=== PATIENT | male | born 1965 | race African-American/Black ===

== ENCOUNTER 2021-01-04 08:37 | Emergency (ER) | payer MEDICARE, OTHER ==
[~2021-01-04] VITALS: Ht 182.9 cm; Wt 113.6 kg
[~2021-01-04 08:37] MED LIST: ACET325T9 PO; AMIO200T6 PO; ASPI-630 PO; ATOR40TA59 PO; CALC200T3 PO; CARV25TA PO; CHOL400C PO; DIVA250T PO; DIVA500T4 PO; ESTR-113 PO; ESTR2TAB PO; FAMO20TA5 PO; FERR325T14 PO; FURO40TA4 PO; HYDR25TA PO; IMIP75CA PO; LISI20TA18 PO; OLAN10TA9 PO; OLAN20TA15 PO; PANT20TA2 PO; PARO40TA3 PO; PARO40TA61 PO; POLY17PO29 PO; SPIR25TA5 PO; SPIR50TA4 PO; ZINC50TA39 PO
--- NOTE | 2021-01-04 09:09 | RAD ---
EXAM: CHEST 1 VIEW History: Fall COMPARISON: None available. TECHNIQUE: Single portable radiograph of the chest FINDINGS: The cardiac silhouette is unremarkable. The lungs are clear bilaterally. The costophrenic sulci are clear and well demarcated. IMPRESSION: No radiographic evidence of an acute cardiopulmonary process. Electronically signed by: Ted Crawford MD (01/04/2021 9:07 AM) [id number]
--- NOTE | 2021-01-04 09:18 | RAD ---
PQRS Compliance Statement: One or more of the following individualized dose reduction techniques were utilized for this examinat ion: 1. Automated exposure control 2. Adjustment of the mA and/or kV according to patient size 3. Use of iterative reconstruction technique CT head without contrast 01/04/2021 8:55 AM INDICATION: Fall today, hit head. Loss of consciousness. COMPARISON: CT head 08/03/2020 TECHNIQUE: Multiple axial CT images of the head were obtained from skull base through the vertex with out intravenous contrast. FINDINGS: Head: Ventricles, sulci and basal cisterns are prominent compatible with mild generalized cerebral volume l oss. Remote lacunar infarct identified within the right caudate head. There is a moderate territory r emote infarct involving the left frontoparietal lobe, stable. Remote infarct is identified involving the left frontal operculum. There is a remote infarct involving the right medial occipital lobe. Low- attenuation in the periventricular white matter is suggestive of chronic small vessel ischemic change s. Findings are not significantly changed since prior examination. There is no hydrocephalus. There i s no acute intracranial hemorrhage. There is no mass, mass effect or midline shift. Small retrocerebe llar cyst is noted. Otherwise the posterior fossa is normal in appearance. Visualized portions of the orbits are normal. Paranasal sinuses are well aerated. Mastoid air cells a re well aerated. Scalp and calvaria are normal. IMPRESSION: 1. No evidence for acute intracranial hemorrhage. 2. Mild generalized cerebral line loss. Low-attenuation in the periventricular white matter is sugges tive of chronic small vessel ischemic changes. Findings are similar to prior examination. 3. Multifocal areas of encephalomalacia suggestive of remote infarcts in multiple vascular territorie s. Findings are similar to the prior summation from 08/03/2020. If there is concern for acute or subac belkofski ischemia, further characterization with MRI of the brain is recommended. Electronically signed by: Iris Baker MD (01/04/2021 9:15 AM) [id number]
[2021-01-04 09:23] LABS: BASO % 1 % (0-3); EOS # 0.2 x10^3/uL (0.0-0.7); EOS % 4 % (0-3); HEMATOCRIT 37.5 % (39.0-53.0); HEMOGLOBIN 12.3 g/dL (13.0-17.5); LYMPH # 1.2 x10^3/uL (1.0-4.8); LYMPH % 28 % (24-48); MEAN CORPUSCULAR HEMOGLOBIN 32 pg (25-35); MEAN CORPUSCULAR HGB CONC 33 g/dL (31-37); MEAN CORPUSCULAR VOLUME 96 fL (79-100); MONO # 0.5 x10^3/uL (0.0-1.1); MONO % 11 % (0-9); NEUT # 2.3 x10^3/uL (1.8-7.7); NEUT % 56 % (31-73); PLATELET COUNT 172 x10^3/uL (140-400); RED CELL DISTRIBUTION WIDTH 15.5 % (11.5-14.5); WHITE BLOOD COUNT 4.1 x10^3/uL (4.0-11.0)
[2021-01-04 09:35] LABS: CALCIUM 8.8 mg/dL (8.5-10.1); CREATININE 1.6 mg/dL (0.7-1.3); GFR 54.2; POTASSIUM 5.1 mmol/L (3.5-5.1)
[2021-01-04 09:41] LABS: ALBUMIN 3.3 g/dL (3.4-5.0); ALBUMIN/GLOBULIN RATIO 0.9 (1.0-1.7); MAGNESIUM 2.5 mg/dL (1.8-2.4); TOTAL BILIRUBIN 0.4 mg/dL (0.2-1.0); TOTAL PROTEIN 7.1 g/dL (6.4-8.2)
[2021-01-04 13:50] LABS: BARBITURATES NEG (NEG); BENZODIAZEPINES NEG (NEG); CANNABINOIDS NEG (NEG); COCAINE NEG (NEG); METHADONE NEG (NEG); OPIATES NEG (NEG); PHENCYCLIDINE NEG (NEG)
[2021-01-04 13:51] LABS: AMPHETAMINE/METHAMPHETAMINE NEG (NEG)
[2021-01-04 13:54] LABS: BILIRUBIN,URINE NEGATIVE (NEG); CLARITY,URINE CLEAR; COLOR,URINE YELLOW; NITRITE,URINE NEGATIVE (NEG); PH,URINE 6.5 (<5.0-8.0); PROTEIN,URINE NEGATIVE (NEG-TRACE)
--- NOTE | 2021-01-04 14:17 | PHYS DOC ---
Past Medical History Past Medical History: A-Fib, Anemia, CHF, GERD, GI Bleed, Hypertension, Liver Disease, Schizophrenia, Other Additional Past Medical Histor: Impulse d/o, jenaro risk heterosexual behavior, constipation, chronic gastric [facility] Past Surgical History: Other Additional Past Surgical Histo: Unknown, pt not a good historian, NECK ([facility]) Smoking Status: Former Smoker Alcohol Use: None Drug Use: None ([facility]) General Adult EDM: Chief Complaint: MECHANICAL FALL HPI: HPI: 55 yo M ([facility]) Review of Systems: Review of Systems: Constitutional: Denies fever or chills. [] Eyes: Denies change in visual acuity. [] HENT: Denies nasal congestion or sore throat. [] Respiratory: Denies cough or shortness of breath. [] Cardiovascular: Denies chest pain or edema. [] GI: Denies abdominal pain, nausea, vomiting, bloody stools or diarrhea. [] : Denies dysuria. [] Musculoskeletal: Denies back pain or joint pain. [] Integument: Denies rash. [] Neurologic: Denies headache, focal weakness or sensory changes. [] Endocrine: Denies polyuria or polydipsia. [] Lymphatic: Denies swollen glands. [] Psychiatric: Denies depression or anxiety. [] ([facility]) Heart Score: C/O Chest Pain: No Risk Factors: Risk Factors: DM, Current or recent (<one month) smoker, HTN, HLP, family history of CAD, obesity. Risk Scores: Score 0 - 3: 2.5% MACE over next 6 weeks - Discharge Home Score 4 - 6: 20.3% MACE over next 6 weeks - Admit for Clinical Observation Score 7 - 10: 72.7% MACE over next 6 weeks - Early Invasive Strategies ([facility]) Allergies: Allergies: Allergies Coded Allergies Type Severity Reaction Last Updated Verified lisinopril Allergy Severe ANGIOEDEMA 08/15/18 Yes ([facility]) Physical Exam: PE: Constitutional: Well developed, well nourished, no acute distress, non-toxic appearance. HENT: Normocephalic, atraumatic, Eyes: EOMI, conjunctiva normal, no discharge. Neck: Normal range of motion, supple, Cardiovascular: S1/2 present, regular rhythm Lungs & Thorax: Speaking in full sentences, bilateral equal chest rise, no tachypnea or increased work of breathing Abdomen: soft, no tenderness, Skin: Warm, dry, no erythema, no rash. [] Back: No tenderness, no CVA tenderness. [] Extremities: No tenderness, no cyanosis, no lower extremity edema Neurologic: Alert and oriented X 3, normal motor function, normal sensory function, no focal deficits noted. [] Psychologic: Affect normal, judgement normal, mood normal. [] ([facility],LIANNA Valles DO) Current Patient Data: Labs: Laboratory Tests Test 01/04/21 09:12 01/04/21 12:15 01/04/21 13:20 White Blood Count 4.1 x10^3/uL (4.0-11.0) Red Blood Count 3.90 x10^6/uL (4.30-5.70) L Hemoglobin 12.3 g/dL (13.0-17.5) L Hematocrit 37.5 % (39.0-53.0) L Mean Corpuscular Volume 96 fL (79-100) Mean Corpuscular Hemoglobin 32 pg (25-35) Mean Corpuscular Hemoglobin Concent 33 g/dL (31-37) Red Cell Distribution Width 15.5 % (11.5-14.5) H Platelet Count 172 x10^3/uL (140-400) Neutrophils (%) (Auto) 56 % (31-73) Lymphocytes (%) (Auto) 28 % (24-48) Monocytes (%) (Auto) 11 % (0-9) H Eosinophils (%) (Auto) 4 % (0-3) H Basophils (%) (Auto) 1 % (0-3) Neutrophils # (Auto) 2.3 x10^3/uL (1.8-7.7) Lymphocytes # (Auto) 1.2 x10^3/uL (1.0-4.8) Monocytes # (Auto) 0.5 x10^3/uL (0.0-1.1) Eosinophils # (Auto) 0.2 x10^3/uL (0.0-0.7) Basophils # (Auto) 0.0 x10^3/uL (0.0-0.2) Sodium Level 141 mmol/L (136-145) Potassium Level 5.1 mmol/L (3.5-5.1) Chloride Level 103 mmol/L (98-107) Carbon Dioxide Level 32 mmol/L (21-32) Anion Gap 6 (6-14) Blood Urea Nitrogen 22 mg/dL (8-26) Creatinine 1.6 mg/dL (0.7-1.3) H Estimated GFR (Cockcroft-Gault) 54.2 BUN/Creatinine Ratio 14 (6-20) Glucose Level 111 mg/dL (70-99) H Calcium Level 8.8 mg/dL (8.5-10.1) Magnesium Level 2.5 mg/dL (1.8-2.4) H Total Bilirubin 0.4 mg/dL (0.2-1.0) Aspartate Amino Transferase (AST) 19 U/L (15-37) Alanine Aminotransferase (ALT) 23 U/L (16-63) Alkaline Phosphatase 67 U/L (46-116) Troponin I Quantitative < 0.017 ng/mL (0.000-0.055) < 0.017 ng/mL (0.000-0.055) WQ-Abp-I-Type Natriuretic Peptide 119 pg/mL (0-124) Total Protein 7.1 g/dL (6.4-8.2) Albumin 3.3 g/dL (3.4-5.0) L Albumin/Globulin Ratio 0.9 (1.0-1.7) L Lipase 54 U/L (73-393) L Urine Opiates Screen Neg (NEG) Urine Methadone Screen Neg (NEG) Urine Barbiturates Neg (NEG) Urine Phencyclidine Screen Neg (NEG) Urine Amphetamine/Methamphetamine Neg (NEG) Urine Benzodiazepines Screen Neg (NEG) Urine Cocaine Screen Neg (NEG) Urine Cannabinoids Screen Neg (NEG) Urine Ethyl Alcohol Neg (NEG) Laboratory Tests 01/04/21 09:12 Laboratory Tests 01/04/21 09:12 Vital Signs: Vital Signs Date Time Temp Pulse Resp B/P (MAP) Pulse Ox O2 Delivery O2 Flow Rate FiO2 01/04/21 11:21 60 14 134/78 (96) 95 01/04/21 08:45 98.2 Room Air 98.2 ([facility]) Vital Signs: Vital Signs Date Time Temp Pulse Resp B/P (MAP) Pulse Ox O2 Delivery O2 Flow Rate FiO2 01/04/21 08:45 98.2 63 21 124/71 (88) 94 Room Air 98.2 Vital Signs Date Time Temp Pulse Resp B/P (MAP) Pulse Ox O2 Delivery O2 Flow Rate FiO2 01/04/21 18:58 72 127/85 (99) 93 Room Air 01/04/21 11:21 14 01/04/21 08:45 98.2 98.2 (MARGIE LOU DO) EKG: EKG: [] (LIANNA SAPP DO) EKG: EKG ordered and initially reviewed by daytime physician, further reviewed and interpreted by myself as sinus rhythm at 63 bpm, prolonged SC interval at 202 otherwise unremarkable intervals, left axis deviation, no obvious ischemic findings, no STEMI (MARGIE LOU DO) Radiology/Procedures: Radiology/Procedures: IMAGING REPORT Signed PATIENT: LUIS DANIEL MCCARTY ACCOUNT: [id number] : 1965 LOCATION: ER AGE: 55 SEX: M EXAM STATUS: REG ER ORD. PHYSICIAN: LIANNA SAPP DO REASON: FALL TODAY, HIT HEAD, PT STATED LOC PROCEDURE: CT HEAD WO CONTRAST PQRS Compliance Statement: One or more of the following individualized dose reduction techniques were utilized for this examination: 1. Automated exposure control 2. Adjustment of the mA and/or kV according to patient size 3. Use of iterative reconstruction technique CT head without contrast 01/04/2021 8:55 AM INDICATION: Fall today, hit head. Loss of consciousness. COMPARISON: CT head 08/03/2020 TECHNIQUE: Multiple axial CT images of the head were obtained from skull base through the vertex without intravenous contrast. FINDINGS: Head: Ventricles, sulci and basal cisterns are prominent compatible with mild generalized cerebral volume loss. Remote lacunar infarct identified within the right caudate head. There is a moderate territory remote infarct involving the left frontoparietal lobe, stable. Remote infarct is identified involving the left frontal operculum. There is a remote infarct involving the right medial occipital lobe. Low-attenuation in the periventricular white matter is s uggestive of chronic small vessel ischemic changes. Findings are not significantly changed since prior examination. There is no hydrocephalus. There is no acute intracranial hemorrhage. There is no mass, mass effect or midline shift. Small retrocerebellar cyst is noted. Otherwise the posterior fossa is normal in appearance. Visualized portions of the orbits are normal. Paranasal sinuses are well aerated. Mastoid air cells are well aerated. Scalp and calvaria are normal. IMPRESSION: 1. No evidence for acute intracranial hemorrhage. 2. Mild generalized cerebral line loss. Low-attenuation in the periventricular white matter is suggestive of chronic small vessel ischemic changes. Findings a re similar to prior examination. 3. Multifocal areas of encephalomalacia suggestive of remote infarcts in multiple vascular territories. Findings are similar to the prior summation from 08/03/2020. If there is concern for acute or subacute ischemia, further characterization with MRI of the brain is recommended. Electronically signed by: Rubén Batres MD (01/04/2021 9:15 AM) [id number] DICTATED and SIGNED BY: RUBÉN BATRES MD DATE: 01/04/21 [id number] 0 IMAGING REPORT Signed PATIENT: LUIS DANIEL MCCARTY ACCOUNT: [id number] : 1965 LOCATION: ER AGE: 55 SEX: M EXAM STATUS: PRE ER ORD. PHYSICIAN: LIANNA SAPP DO REASON: fall? PROCEDURE: PORTABLE CHEST 1V EXAM: CHEST 1 VIEW History: Fall COMPARISON: None available. TECHNIQUE: Single portable radiograph of the chest FINDINGS: The cardiac silhouette is unremarkable. The lungs are clear bilaterally. The costophrenic sulci are clear and well demarcated. IMPRESSION: No radiographic evidence of an acute cardiopulmonary process. Electronically signed by: Ted Crawford MD (01/04/2021 9:07 AM) [id number] DICTATED and SIGNED BY: TED CRAWFORD MD DATE: 01/04/21 [id number] 0 IMAGING REPORT Signed PATIENT: LUIS DANIEL MCCARTY ACCOUNT: [id number] : 1965 LOCATION: ER AGE: 55 SEX: M EXAM STATUS: REG ER ORD. PHYSICIAN: LIANNA SAPP DO REASON: FALL TODAY, HIT HEAD, PT STATED LOC PROCEDURE: CT HEAD WO CONTRAST PQRS Compliance Statement: One or more of the following individualized dose reduction techniques were utilized for this examination: 1. Automated exposure control 2. Adjustment of the mA and/or kV according to patient size 3. Use of iterative reconstruction technique CT head without contrast 01/04/2021 8:55 AM INDICATION: Fall today, hit head. Loss of consciousness. COMPARISON: CT head 08/03/2020 TECHNIQUE: Multiple axial CT images of the head were obtained from skull base through the vertex without intravenous contrast. FINDINGS: Head: Ventricles, sulci and basal cisterns are prominent compatible with mild generalized cerebral volume loss. Remote lacunar infarct identified within the right caudate head. There is a moderate territory remote infarct involving the left frontoparietal lobe, stable. Remote infarct is identified involving the left frontal operculum. There is a remote infarct involving the right medial occipital lobe. Low-attenuation in the periventricular white matter is suggestive of chronic small vessel ischemic changes. Findings are not sign ificantly changed since prior examination. There is no hydrocephalus. There is no acute intracranial hemorrhage. There is no mass, mass effect or midline shift. Small retrocerebellar cyst is noted. Otherwise the posterior fossa is normal in appearance. Visualized portions of the orbits are normal. Paranasal sinuses are well aerated. Mastoid air cells are well aerated. Scalp and calvaria are normal. IMPRESSION: 1. No evidence for acute intracranial hemorrhage. 2. Mild generalized cerebral line loss. Low-attenuation in the periventricular white matter is suggestive of chronic small vessel ischemic changes. Findings are similar to prior examination. 3. Multifocal areas of encephalomalacia suggestive of remote infarcts in multiple vascular territories. Findings are similar to the prior summation from 08/03/2020. If there is concern for acute or subacute ischemia, further characterization with MRI of the brain is recommended. Electronically signed by: Rubén Batres MD (01/04/2021 9:15 AM) [id number] DICTATED and SIGNED BY: RUBÉN BATRES MD DATE: 01/04/21 [id number] 0 IMAGING REPORT Signed PATIENT: LUIS DANIEL MCCARTY ACCOUNT: [id number] : 1965 LOCATION: ER AGE: 55 SEX: M EXAM STATUS: PRE ER ORD. PHYSICIAN: LIANNA SAPP DO REASON: fall? PROCEDURE: PORTABLE CHEST 1V EXAM: CHEST 1 VIEW History: Fall COMPARISON: None available. TECHNIQUE: Single portable radiograph of the chest FINDINGS: The cardiac silhouette is unremarkable. The lungs are clear bilaterally. The costophrenic sulci are clear and well demarcated. IMPRESSION: No radiographic evidence of an acute cardiopulmonary process. Electronically signed by: Ted Crawford MD (01/04/2021 9:07 AM) [id number] DICTATED and SIGNED BY: TED CRAWFORD MD DATE: 01/04/21 [id number] 0 IMAGING REPORT Signed PATIENT: LUIS DANIEL MCCARTY ACCOUNT: [id number] : 1965 LOCATION: ER AGE: 55 SEX: M EXAM STATUS: REG ER ORD. PHYSICIAN: LIANNA SAPP DO REASON: fall PROCEDURE: PELVIS EXAMINATION: Pelvic radiograph. VIEWS: Single AP view COMPARISON: None INDICATION: Falling down FINDINGS: No acute fracture, dislocation or subluxation. No bone erosion or periosteal reaction. No soft tissue swelling or joint effusion. IMPRESSION: No acute process process. Electronically signed by: Isidra Cheng MD (01/04/2021 2:39 PM) [id number] DICTATED and SIGNED BY: ISIDRA CHENG MD DATE: 01/04/21 [id number] 0 (LIANNA SAPP DO) Course & Med Decision Making: Course & Med Decision Making Pertinent Labs and Imaging studies reviewed. (See chart for details) [] (LIANNA SAPP DO) Course & Med Decision Making I assumed care of patient after comprehensive signout by off going physician. I personally saw patient and repeated aspects of history and physical exam. I reviewed entirety of ER work-up that was grossly nonconcerning for emergent or surgical findings, troponins x3 unremarkable I discussed potential need for hospital admission but patient deferred, states he is at baseline health, demonstrated he was able to ambulate without difficulty and was ready for discharge back to shelter facility which will provide him adequate care given his current condition I reiterated importance of close PCP follow-up, strict return precautions were discussed with good understanding by patient, all questions and concerns addressed prior to ER departure (MARGIE LOU DO) Dragon Disclaimer: Markel Disclaimer: This electronic medical record was generated, in whole or in part, using a voice recognition dictation system. (LIANNA SAPP DO) Departure Departure Impression: Primary Impression: Accident due to mechanical fall without injury Disposition: HOME / SELF CARE / HOMELESS Condition: STABLE Referrals: JUANCARLOS QUILES MD (PCP) Patient Instructions: Fall Prevention and Home Safety Additional Instructions: As discussed prior to ER departure, you were seen and evaluated for a mechanical fall. Your comprehensive physical exam and ER work-up consisting of blood and imaging was all negative for any emergent or surgical issues. With that said, it was stressed how important it is to follow-up with your primary care provider in the upcoming 48 hours after ER departure for repeat evaluation. If any concerning signs or symptoms present prior to outpatient follow-up please do not hesitate to come back for repeat evaluation. It was a pleasure to take care of you and I wish you the best going forward LIANNA SAPP DO January 04, 2021 14:17 MARGIE LUO DO January 04, 2021 17:54
[2021-01-04 14:22] LABS: BACTERIA,URINE 0 /HPF (0-FEW); RBC,URINE 0 /HPF (0-2); WBC,URINE 0 /HPF (0-4)
--- NOTE | 2021-01-04 14:42 | RAD ---
EXAMINATION: Pelvic radiograph. VIEWS: Single AP view COMPARISON: None INDICATION: Falling down FINDINGS: No acute fracture, dislocation or subluxation. No bone erosion or periosteal reaction. No soft tissue swelling or joint effusion. IMPRESSION: No acute process process. Electronically signed by: Gabriel Cheng MD (01/04/2021 2:39 PM) [id number]
--- NOTE | 2021-01-04 17:39 | EKG ---
[facility] [address] [place] [address] Test Date: 2021-01-04 Test Time: 09:14:00 Pat Name: LUIS DANIEL MCCARTY Department: Room: Gender: M Contract Processor: : 1965 Requested By: LIANNA SAPP Order Number: [id number] Reading MD: Measurements Intervals [place] Rate: 63 P: 57 TN: 202 QRS: -23 QRSD: 96 T: 58 QT: 426 QTc: 439 Interpretive Statements SINUS RHYTHM LEFTWARD AXIS NO SPECIFIC ECG ABNORMALITIES RI6.02 No previous ECG available for comparison
[2021-01-04 18:58] VITALS: BP 127/85
== END 2021-01-04 19:37 | disposition home or self-care (01) ==
LOC: ER 08:37
DX: S09.90XA Unspecified injury of head, initial encounter (principal); I48.91 Unspecified atrial fibrillation; I11.0 Hypertensive heart disease with heart failure; I50.9 Heart failure, unspecified; K21.9 Gastro-esophageal reflux disease without esophagitis; F20.9 Schizophrenia, unspecified; G89.29 Other chronic pain; Z87.891 Personal history of nicotine dependence; Z88.6 Allergy status to analgesic agent; W18.09XA Striking against other object with subsequent fall, initial encounter; Y93.89 Activity, other specified; Y92.89 Other specified places as the place of occurrence of the external cause; Y99.8 Other external cause status
CPT/HCPCS: 36415; 70450; 71045; 72170; 80053; 80307; 81001; 83690; 83735; 83880; 84484; 85025; 93005; 99285-25

== ENCOUNTER → 2021-01-11 | Outpatient (CLI) | payer MEDICARE, OTHER ==
[2021-01-04 18:58] VITALS: BP 127/85
--- NOTE | 2021-01-11 16:16 | CARD ---
MR#: [id number] Date of Study: 01/11/2021 Ordering Physician: YUNIEL KNOX, Referring Physician: YUNIEL KNOX, Tech: Whit Larios [facility] APPROVED REPORT EXAM: Two-dimensional and M-mode echocardiogram with Doppler and color Doppler. Other Information Quality : Technically LimitedHR: 63bpm Rhythm : NSR INDICATION Dyspnea RISK FACTORS Hypertension Obesity 2D DIMENSIONS RVDd3.5 (2.9-3.5cm)Left Atrium(2D)3.9 (1.6-4.0cm) IVSd1.2 (0.7-1.1cm)Aortic Root(2D)3.4 (2.0-3.7cm) LVDd4.5 (3.9-5.9cm)LVOT Diameter2.5 (1.8-2.4cm) PWd1.4 (0.7-1.1cm)LVDs2.8 (2.5-4.0cm) FS (%) 38.6 %SV64.8 ml LVEF(%)69.0 (>50%) Aortic Valve AoV Peak Byron.108.5cm/sAoV VTI21.7cm AO Peak GR.4.7mmHgLVOT Peak Byron.91.9cm/s AO Mean GR.2mmHgAVA (VMAX)4.32cm2 Mitral Valve MV E Wedjyrsk05.0cm/sMV DECEL VIRA366dh MV A Vzgnnxyp44.2cm/sE/A Ratio0.9 Tricuspid Valve TR P. Lpqcavfm512xo/sTR Peak Gr.22mmHg Pulmonary Vein S1 Wkkgxgxu10.2cm/sD2 Lfaimzui99.4cm/s PVa [id number] LEFT VENTRICLE The left ventricle is normal size. There is borderline to mild concentric left ventricular hypertroph y. The left ventricular systolic function is normal. Estimated ejection fraction 55-60%. There is no rmal LV segmental wall motion. Transmitral Doppler flow pattern is Grade I-abnormal relaxation patter n. RIGHT VENTRICLE The right ventricle is normal size. There is normal right ventricular wall thickness. The right ventr icular systolic function is normal. ATRIA The left atrium size is normal. The right atrium size is normal. The interatrial septum is intact wit h no evidence for an atrial septal defect or patent foramen ovale as noted on 2-D or Doppler imaging. AORTIC VALVE The aortic valve is normal in structure and function. Doppler and Color Flow revealed no significant aortic regurgitation. There is no significant aortic valvular stenosis. MITRAL VALVE The mitral valve is normal in structure and function. There is no evidence of mitral valve prolapse. There is no mitral valve stenosis. Doppler and Color Flow revealed no mitral valve regurgitation note d. TRICUSPID VALVE The tricuspid valve is normal in structure and function. Doppler and Color Flow revealed trace tricus pid regurgitation. Estimated PAP 25 mmHg. There is no tricuspid valve stenosis. PULMONIC VALVE The pulmonary valve is normal in structure and function. Doppler and Color Flow revealed no pulmonic valvular regurgitation. GREAT VESSELS The aortic root is normal in size. The ascending aorta is normal in size. The IVC is normal in size a nd collapses >50% with inspiration. PERICARDIAL EFFUSION There is no evidence of significant pericardial effusion. Critical Notification Critical Value: No <Conclusion> The left ventricular systolic function is normal. Estimated ejection fraction 55-60%. There is normal LV segmental wall motion. Transmitral Doppler flow pattern is Grade I-abnormal relaxation pattern. Trace tricuspid regurgitation. Estimated PAP 25 mmHg. There is no evidence of significant pericardial effusion. Signed by : Benedicto Escobar, Electronically Approved : 01/11/2021 16:16:04
== END ==
LOC: ECHO 12:46
PROVIDERS: ATTEND Internal Medicine Cardiovascular Disease
DX: I51.7 Cardiomegaly (principal); Z86.79 Personal history of other diseases of the circulatory system
CPT/HCPCS: 93306

== ENCOUNTER 2021-02-16 10:57 | Emergency (ER) | payer MEDICARE, OTHER ==
[~2021-02-16] VITALS: Ht 182.9 cm; Wt 100.0 kg
[2021-02-16 11:58] LABS: BASO # 0.1 x10^3/uL (0.0-0.2); BASO % 1 % (0-3); EOS # 0.1 x10^3/uL (0.0-0.7); EOS % 3 % (0-3); HEMATOCRIT 35.4 % (39.0-53.0); HEMOGLOBIN 11.8 g/dL (13.0-17.5); LYMPH # 1.2 x10^3/uL (1.0-4.8); LYMPH % 28 % (24-48); MEAN CORPUSCULAR HEMOGLOBIN 32 pg (25-35); MEAN CORPUSCULAR HGB CONC 33 g/dL (31-37); MEAN CORPUSCULAR VOLUME 96 fL (79-100); MONO # 0.5 x10^3/uL (0.0-1.1); MONO % 12 % (0-9); NEUT # 2.5 x10^3/uL (1.8-7.7); NEUT % 56 % (31-73); PLATELET COUNT 163 x10^3/uL (140-400); RED CELL DISTRIBUTION WIDTH 14.9 % (11.5-14.5); WHITE BLOOD COUNT 4.4 x10^3/uL (4.0-11.0)
[2021-02-16 12:19] LABS: ANION GAP 8 (6-14); BLOOD UREA NITROGEN 19 mg/dL (8-26); BUN/CREATININE RATIO 11 (6-20); CALCIUM 8.9 mg/dL (8.5-10.1); CARBON DIOXIDE 26 mmol/L (21-32); CHLORIDE 101 mmol/L (98-107); CREATININE 1.8 mg/dL (0.7-1.3); GFR 47.3; GLUCOSE 103 mg/dL (70-99); POTASSIUM 4.6 mmol/L (3.5-5.1); SODIUM 135 mmol/L (136-145)
[2021-02-16 12:26] LABS: ALBUMIN 3.2 g/dL (3.4-5.0); ALBUMIN/GLOBULIN RATIO 0.8 (1.0-1.7); ALK PHOS 66 U/L (46-116); ALT (SGPT) 17 U/L (16-63); AST (SGOT) 11 U/L (15-37); MAGNESIUM 2.3 mg/dL (1.8-2.4); TOTAL BILIRUBIN 0.3 mg/dL (0.2-1.0); TOTAL PROTEIN 7.1 g/dL (6.4-8.2)
[2021-02-16 12:31] LABS: VAL ACID 63 mcg/mL (50-100)
[2021-02-16] MEDS ORDERED: IV NORMAL SALINE 1000ML BAG 1,000 ML IV ONE (12:45)
--- NOTE | 2021-02-16 13:00 | PHYS DOC ---
Past Medical History Past Medical History: A-Fib, Anemia, CHF, GERD, GI Bleed, Hypertension, Liver Disease, Schizophrenia, Other Additional Past Medical Histor: Impulse d/o, jenaro risk heterosexual behavior, constipation, chronic gastric Past Surgical History: Other Additional Past Surgical Histo: Unknown, pt not a good historian, NECK Smoking Status: Former Smoker Alcohol Use: None Drug Use: None General Adult EDM: Chief Complaint: ALTERED MENTAL STATUS HPI: HPI: Patient is a 55 year old male who was brought here for evaluation after he fell multiple times since yesterday from the long-term. Patient appears to be confused and somnolent upon arrival to ER. History is limited at this time. Review of Systems: Review of Systems: Constitutional: Denies fever or chills. [] Eyes: Denies change in visual acuity. [] HENT: Denies nasal congestion or sore throat. [] Respiratory: Denies cough or shortness of breath. [] Cardiovascular: Denies chest pain or edema. [] GI: Denies abdominal pain, nausea, vomiting, bloody stools or diarrhea. [] : Denies dysuria. [] Musculoskeletal: Denies back pain or joint pain. [] Integument: Denies rash. [] Neurologic: Denies headache, focal weakness or sensory changes. [] Endocrine: Denies polyuria or polydipsia. [] Lymphatic: Denies swollen glands. [] Psychiatric: Denies depression or anxiety. [] Heart Score: C/O Chest Pain: N/A Risk Factors: Risk Factors: DM, Current or recent (<one month) smoker, HTN, HLP, family history of CAD, obesity. Risk Scores: Score 0 - 3: 2.5% MACE over next 6 weeks - Discharge Home Score 4 - 6: 20.3% MACE over next 6 weeks - Admit for Clinical Observation Score 7 - 10: 72.7% MACE over next 6 weeks - Early Invasive Strategies Current Medications: Current Medications Medications (Trade) Dose Ordered Sig/Fariba Start Time Stop Time Status Last Admin Dose Admin Sodium Chloride 1,000 ml @ 1,000 mls/hr 1X ONCE 02/16/21 12:45 02/16/21 13:44 Allergies: Allergies: Allergies Coded Allergies Type Severity Reaction Last Updated Verified lisinopril Allergy Severe ANGIOEDEMA 08/15/18 Yes Physical Exam: PE: Constitutional: Well developed, well nourished, no acute distress, non-toxic appearance. [] HENT: Normocephalic, atraumatic, bilateral external ears normal, oropharynx moist, no oral exudates, nose normal. [] Eyes: PERRLA, EOMI, conjunctiva normal, no discharge. [] Neck: Normal range of motion, no tenderness, supple, no stridor. [] Cardiovascular:Heart rate regular rhythm, no murmur [] Lungs & Thorax: Bilateral breath sounds clear to auscultation [] Abdomen: Bowel sounds normal, soft, no tenderness, no masses, no pulsatile masses. [] Skin: Warm, dry, no erythema, no rash. [] Back: No tenderness, no CVA tenderness. [] Extremities: No tenderness, no cyanosis, no clubbing, ROM intact, no edema. [] Neurologic: Arousable to verbal command, confused, normal motor function, normal sensory function, no focal deficits noted. [] Psychologic: Affect normal, judgement normal, mood normal. [] Current Patient Data: Labs: Laboratory Tests Test 02/16/21 11:49 White Blood Count 4.4 x10^3/uL (4.0-11.0) Red Blood Count 3.70 x10^6/uL (4.30-5.70) L Hemoglobin 11.8 g/dL (13.0-17.5) L Hematocrit 35.4 % (39.0-53.0) L Mean Corpuscular Volume 96 fL (79-100) Mean Corpuscular Hemoglobin 32 pg (25-35) Mean Corpuscular Hemoglobin Concent 33 g/dL (31-37) Red Cell Distribution Width 14.9 % (11.5-14.5) H Platelet Count 163 x10^3/uL (140-400) Neutrophils (%) (Auto) 56 % (31-73) Lymphocytes (%) (Auto) 28 % (24-48) Monocytes (%) (Auto) 12 % (0-9) H Eosinophils (%) (Auto) 3 % (0-3) Basophils (%) (Auto) 1 % (0-3) Neutrophils # (Auto) 2.5 x10^3/uL (1.8-7.7) Lymphocytes # (Auto) 1.2 x10^3/uL (1.0-4.8) Monocytes # (Auto) 0.5 x10^3/uL (0.0-1.1) Eosinophils # (Auto) 0.1 x10^3/uL (0.0-0.7) Basophils # (Auto) 0.1 x10^3/uL (0.0-0.2) Sodium Level 135 mmol/L (136-145) L Potassium Level 4.6 mmol/L (3.5-5.1) Chloride Level 101 mmol/L (98-107) Carbon Dioxide Level 26 mmol/L (21-32) Anion Gap 8 (6-14) Blood Urea Nitrogen 19 mg/dL (8-26) Creatinine 1.8 mg/dL (0.7-1.3) H Estimated GFR (Cockcroft-Gault) 47.3 BUN/Creatinine Ratio 11 (6-20) Glucose Level 103 mg/dL (70-99) H Calcium Level 8.9 mg/dL (8.5-10.1) Magnesium Level 2.3 mg/dL (1.8-2.4) Total Bilirubin 0.3 mg/dL (0.2-1.0) Aspartate Amino Transferase (AST) 11 U/L (15-37) L Alanine Aminotransferase (ALT) 17 U/L (16-63) Alkaline Phosphatase 66 U/L (46-116) Total Protein 7.1 g/dL (6.4-8.2) Albumin 3.2 g/dL (3.4-5.0) L Albumin/Globulin Ratio 0.8 (1.0-1.7) L Valproic Acid Level mcg/mL (50-100) Valproic Acid Last Dose Date 02/15/21 Valproic Acid Last Dose Time 1900 Laboratory Tests 02/16/21 11:49 Laboratory Tests 02/16/21 11:49 Vital Signs: Vital Signs Date Time Temp Pulse Resp B/P (MAP) Pulse Ox O2 Delivery O2 Flow Rate FiO2 02/16/21 10:58 97.5 56 12 123/76 (92) 96 Room Air 97.5 EKG: EKG: [] Radiology/Procedures: Radiology/Procedures: [][facility] [address] [place] [address] IMAGING REPORT Signed PATIENT: LUIS DANIEL MCCARTY ACCOUNT: [id number] : 1965 LOCATION: ER AGE: 55 SEX: M EXAM STATUS: REG ER ORD. PHYSICIAN: KRISTIN MANCIA DO REASON: fell, hit head, fell 3 times since yesterday PROCEDURE: CT HEAD AND CERVICAL SPINE WO EXAM: CT head and cervical spine without contrast INDICATION: Fell 3 times since yesterday COMPARISON: CT head 01/04/2021 and 08/03/2020 TECHNIQUE: Axial CT imaging through the head and cervical spine without intravenous contrast. Sagittal and coronal reformats were obtained. One or more of the following individualized dose reduction techniques were utilized for this examination: 1. Automated exposure control 2. Adjustment of the mA and/or kV according to patient size 3. Use of iterative reconstruction technique. FINDINGS: CT head: No intracranial hemorrhage. 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 There is mild to moderate volume loss and moderate chronic microvascular ischemic changes. The calvarium is intact. The paranasal sinuses and mastoid air cells are clear. Globes and orbits are intact.. CT cervical spine: No acute fracture. Alignment is normal. The craniocervical junction and atlantoaxial interval are maintained. There is mild disc space narrowing with tiny anterior osteophytes of multiple levels. No bony canal or foraminal narrowing. Prevertebral soft tissues normal. IMPRESSION: 1. 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 No intracranial hemorrhage or definite acute infarct. MRI would be more sensitive to evaluate for acute ischemic changes. 2. Unchanged volume loss and chronic microvascular ischemic changes. 3. No acute osseous abnormality of the cervical spine. Electronically signed by: Sun Blount MD (02/16/2021 12:11 PM) [id number] DICTATED and SIGNED BY: SUN BLOUNT MD Course & Med Decision Making: Course & Med Decision Making Pertinent Labs and Imaging studies reviewed. (See chart for details) Patient is a 55-year-old male who was brought here from assisted living place after he fell hit his head. Patient appeared to be somnolent upon arrival to ER, reviewing his medical records, patient is on Depakote, olanzapine, hydroxyzine. These medication most likely contributed to his altered mental status. CT scan head and C-spine did not show any acute problem. After the patient was in the ER for 3 hours patient was awake alert, oriented, talking without any problem. Patient denies any chest pain, no abdominal pain, no headache, no neck pain. Patient denies suicidal ideation denies homicidal ideation. Patient was deemed stable to be discharged back to long-term. Dragon Disclaimer: Dragon Disclaimer: This electronic medical record was generated, in whole or in part, using a voice recognition dictation system. Departure Departure Impression: Primary Impression: Polypharmacy Additional Impression: Head injury Disposition: HOME / SELF CARE / HOMELESS Condition: STABLE Referrals: JUANCARLOS QUILES MD (PCP) FOLLOW UP WITH YOUR DOCTOR Patient Instructions: Head Injury, Adult, Polypharmacy Problems Additional Instructions: Thank you for visiting our Emergency Department. We appreciate you trusting us with your care. If any additional problems come up don't hesitate to return to visit us. Please follow up with your primary care provider so they can plan additional care if needed and know about the problem that you had. If symptoms worsen come back to the Emergency Department. Any concerning symptoms that start such as chest pain, shortness of air, weakness or numbness on one side of the body, running high fevers or any other concerning symptoms return to the ER. KRISTIN MANCIA DO Feb 16, 2021 13:00
[2021-02-16 13:38] LABS: BILIRUBIN,URINE NEGATIVE (NEG); CLARITY,URINE CLEAR; COLOR,URINE YELLOW; NITRITE,URINE NEGATIVE (NEG); PH,URINE 6.5 (<5.0-8.0); PROTEIN,URINE NEGATIVE (NEG-TRACE)
[2021-02-16 13:43] LABS: BACTERIA,URINE FEW /HPF (0-FEW); RBC,URINE 0 /HPF (0-2)
--- NOTE | 2021-02-16 13:43 | RAD ---
EXAM: CT head and cervical spine without contrast INDICATION: Fell 3 times since yesterday COMPARISON: CT head 01/04/2021 and 08/03/2020 TECHNIQUE: Axial CT imaging through the head and cervical spine without intravenous contrast. Sagitta l and coronal reformats were obtained. One or more of the following individualized dose reduction techniques were utilized for this examinat ion: 1. Automated exposure control 2. Adjustment of the mA and/or kV according to patient size 3. Use of iterative reconstruction technique. FINDINGS: CT head: No intracranial hemorrhage. 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 There is mild to m oderate volume loss and moderate chronic microvascular ischemic changes. The calvarium is intact. The paranasal sinuses and mastoid air cells are clear. Globes and orbits are intact.. CT cervical spine: No acute fracture. Alignment is normal. The craniocervical junction and atlantoaxial interval are ajay ntained. There is mild disc space narrowing with tiny anterior osteophytes of multiple levels. No bon y canal or foraminal narrowing. Prevertebral soft tissues normal. IMPRESSION: 1. 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 No intracranial hemorrhage or defin ite acute infarct. MRI would be more sensitive to evaluate for acute ischemic changes. 2. Unchanged volume loss and chronic microvascular ischemic changes. 3. No acute osseous abnormality of the cervical spine. Electronically signed by: Sun Blount MD (02/16/2021 12:11 PM) [id number]
[2021-02-16 18:39] VITALS: BP 124/75
--- NOTE | 2021-02-16 22:41 | EKG ---
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
== END 2021-02-16 19:20 | disposition home or self-care (01) ==
LOC: ER 10:57
DX: S09.90XA Unspecified injury of head, initial encounter (principal); R41.0 Disorientation, unspecified; I48.91 Unspecified atrial fibrillation; I11.0 Hypertensive heart disease with heart failure; I50.9 Heart failure, unspecified; F20.9 Schizophrenia, unspecified; Z87.891 Personal history of nicotine dependence; Z88.8 Allergy status to other drugs, medicaments and biological substances; W18.39XA Other fall on same level, initial encounter; Y93.89 Activity, other specified; Y92.89 Other specified places as the place of occurrence of the external cause; Y99.8 Other external cause status
CPT/HCPCS: 36415; 70450; 72125; 80053; 80164; 81001; 83735; 85025; 87086; 93005; 96360; 99285; J7030